=== PATIENT | female | born 1960 | race Caucasian/White ===

== ENCOUNTER 2017-08-25 02:39 | Emergency (ER) | payer SELFPAY ==
[~2017-08-25] VITALS: Ht 312.4 cm; Wt 88.5 kg
[~2017-08-25 02:39] MED LIST: DIOVAN80 MG PO; FUROSEMIDE40 MG PO
--- OUTSIDE RECORDS SUMMARY | 2017-08-25 02:42 | XMS REPORT ---
Author Author [facility] Address Unknown Phone Unavailable Care Team Providers Care Coordinator Of Health Services Name Role Phone MARY BETH TARANGO Unavailable Unavailable ANGELA AWLLSYN Unavailable Unavailable SWEET, LAIRD Unavailable Unavailable Problems This patient has no known problems. Allergies, Adverse Reactions, Alerts This patient has no known allergies or adverse reactions. Medications This patient has no known medications. Results Test Description Test Time Test Comments Text Results Atomic Results Result Comments B-TYPE NATRIURETIC FACTOR (BNP) 2017-08-23 15:55:00 B-TYPE NATRIURETIC PEPTIDE (BEAKER) (test dpzr=864) 506 pg/mL 0-100 [id number] 15:48:00* Test Item Value Reference Range Comments MAGNESIUM (BEAKER) (test oslj=190) 2.2 mg/dL 1.6-2.6 BASIC METABOLIC [id number] 15:48:00* Test Item Value Reference Range Comments SODIUM (BEAKER) (test qfba=390) 139 meq/L 136-145 POTASSIUM (BEAKER) (test nhvp=327) 4.8 meq/L 3.5-5.1 CHLORIDE (BEAKER) (test mmzs=737) 103 meq/L 98-107 CO2 (BEAKER) (test qdxw=045) 27 meq/L 22-29 BLOOD UREA NITROGEN (BEAKER) (test bspw=024) 33 mg/dL 7-21 CREATININE (BEAKER) (test fvrn=281) 1.52 mg/dL 0.57-1.25 GLUCOSE RANDOM (BEAKER) (test aewj=533) 127 mg/dL 70-105 CALCIUM (BEAKER) (test jxyh=721) 9.9 mg/dL 8.4-10.2 EGFR (BEAKER) (test tkgg=5597) 35 mL/min/1.73 sq m ESTIMATED GFR IS NOT ACCURATE CREATININE CLEARANCE IN PREDICTING GLOMERULAR FILTRATION RATE. ESTIMATED GFR IS NOT APPLICABLE FOR DIALYSIS PATIENTS. PROTHROMBIN TIME/[id number] 05:25:00* Test Item Value Reference Range Comments PROTIME (BEAKER) (test jhzd=743) 18.2 seconds 11.7-14.7 INR (BEAKER) (test gtxo=386) 1.5 <=5.9 RECOMMENDED COUMADIN/WARFARIN INR THERAPY RANGESSTANDARD DOSE: 2.0 - 3.0 Includes: PROPHYLAXIS for venous thrombosis, systemic embolization; TREATMENT for venous thrombosis and/or pulmonary embolus.HIGH RISK: Target INR is 2.5-3.5 for patients with mechanical heart valves.While on warfarin.BLOOD [id number] 00:00:00* Test Item Value Reference Range Comments CULTURE (BEAKER) (test wtbc=7847) No growth in 5 days BLOOD [id number] 00:00:00* Test Item Value Reference Range Comments CULTURE (BEAKER) (test kobs=3070) No growth in 5 days HEPARIN ASSAY - LOW MOLECULAR [id number] 15:03:00* Test Item Value Reference Range Comments LOVENOX-ANTI 10A (BEAKER) (test rmwk=9350) 0.89 u/ml 0.60-2.00 Anti-Factor 10-A Level (Heparin Assay for Low Molecular Weight Heparin) Monitoring Guidelines: Blood samples should be obtained 4 hours post subcutaneous injection (time of Peak level) Therapeutic Peak Levels: 0.6-1.0 units/mL twice daily enoxaparin 1.0-2.0 units/mL once daily enoxaparinRef: CHEST 2012;141:[id number]-[id number] draw anti-Xa level \R\4 hours after lovenox is administered.PROTHROMBIN TIME/[id number] 06:08:00* Test Item Value Reference Range Comments PROTIME (BEAKER) (test leoj=651) 17.1 seconds 11.7-14.7 INR (BEAKER) (test bbyy=665) 1.4 <=5.9 RECOMMENDED COUMADIN/WARFARIN INR THERAPY RANGESSTANDARD DOSE: 2.0 - 3.0 Includes: PROPHYLAXIS for venous thrombosis, systemic embolization; TREATMENT for venous thrombosis and/or pulmonary embolus.HIGH RISK: Target INR is 2.5-3.5 for patients with mechanical heart valves.While on warfarin.PET, CARDIAC PERFUSION MULTIPLE STUDIES, REST AND [id number] 15:51:00Reason for exam:-> heart failureFINAL REPORT PROCEDURE: Rest/Stress MYOCARDIAL PERFUSION PET with regadenoson\XA9\ CPT CODE: 56930 INDICATION: Congestive heart failure HISTORY: Cardiac risk factors : Hypertension, obesity, hyperlipidemia. Other cardiovascular history: Congestive heart failure. Recent cardiac symptoms: Chest pain and shortness of breath. Current cardiovascular-related medications: Aspirin, amiodarone, atorvastatin, Lovenox, furosemide. PROTOCOL: Limited low-dose CT imaging was performed for attenuation correction. 40.1 mCi of Rb-82 chloride was injected iv at rest, and gated PET (positron emission tomography) images were obtained. Subsequently, 40.0 mCi of Rb-82 chloride was injected iv at expected peak pharmacologic effect, and gated PET images were obtained. PRELIMINARY STRESS TEST DATA FROM NONINVASIVE CARDIOLOGY: Pharmacologic stress was by 10- second iv infusion of 0.4 mg of regadenoson. Radiotracer was injected 30 seconds after start of stress. Heart rate was 85 beats/min at rest and 116 beats /min (71% of MPHR) at tracer injection. BP was 137/68 mmHg at rest and 141/94 mmHg at tracer injection. Stress was stopped for predetermined endpoint. The patient experienced palpitations; treatment was not required. Preliminary ECG evaluation revealed atrial fibrillation with nonspecific ST changes at rest and no ischemic changes with stress. (Final ECG interpretation and other stress and monitoring data are reported separately by Cardiology.) IMAGING FINDINGS: Study quality is good. Images obtained after stress injection show normal radiotracer uptake. Resting images show normal radiotracer uptake. LV volume appears normal. RV volume appears normal. Gated images obtained immediately after stress show mildly hypokinetic LV wall motion. Gated images obtained at rest show normal LV wall motion. LVEF at rest is 60%. LVEF at stress is 47%. IMPRESSION: 1. Abnormal study. 2. Appropriate pharmacologic stress. 3. Normal myocardial perfusion. 4. Normal resting LV function. Worsened LV function is noted with pharmacologic stress. 5. Extracardiac tracer distribution is normal. 6. No previous [facility] study for comparison. NONINVASIVE RISK STRATIFICATION: The above findings are considered intermediate risk (1% to 3% annual or WI) - ([facility]. 2017;69(17):2212-46.) Signed: Gracia Chiang MDReport Verified Date/Time: 08/14/2017 15:51:17 Reading Location: [address] [facility] Reading Room C METABOLIC [id number] 04:08: 00* Test Item Value Reference Range Comments SODIUM (BEAKER) (test reyv=057) 139 meq/L 136-145 POTASSIUM (BEAKER) (test pgrt=611) 4.3 meq/L 3.5-5.1 Specimen slightly hemolyzed CHLORIDE (BEAKER) (test viri=087) 95 meq/L 98-107 CO2 (BEAKER) (test rpff=716) 32 meq/L 22-29 BLOOD UREA NITROGEN (BEAKER) (test szux=694) 26 mg/dL 7-21 CREATININE (BEAKER) (test vydq=173) 1.43 mg/dL 0.57-1.25 Specimen slightly hemolyzed GLUCOSE RANDOM (BEAKER) (test jmjl=379) 114 mg/dL 70-105 CALCIUM (BEAKER) (test othv=642) 9.8 mg/dL 8.4-10.2 EGFR (BEAKER) (test utmt=0157) 38 mL/min/1.73 sq m ESTIMATED GFR IS NOT ACCURATE CREATININE CLEARANCE IN PREDICTING GLOMERULAR FILTRATION RATE. ESTIMATED GFR IS NOT APPLICABLE FOR DIALYSIS PATIENTS. CBC W/PLT COUNT & AUTO [id number] 03:56:00* Test Item Value Reference Range Comments WHITE BLOOD CELL COUNT (BEAKER) (test ggdg=372) 15.1 K/ L 3.5-10.5 RED BLOOD CELL COUNT (BEAKER) (test zqqg=409) 4.24 M/ L 3.93-5.22 HEMOGLOBIN (BEAKER) (test aefr=323) 11.1 GM/DL 11.2-15.7 HEMATOCRIT (BEAKER) (test sryc=076) 39.3 % 34.1-44.9 MEAN CORPUSCULAR VOLUME (BEAKER) (test uybs=985) 92.7 fL 79.4-94.8 MEAN CORPUSCULAR HEMOGLOBIN (BEAKER) (test mpby=059) 26.2 pg 25.6-32.2 MEAN CORPUSCULAR HEMOGLOBIN CONC (BEAKER) (test gqjs=714) 28.2 GM/DL 32.2- 35.5 RED CELL DISTRIBUTION WIDTH (BEAKER) (test vlis=556) 17.2 % 11.7-14.4 PLATELET COUNT (BEAKER) (test zusm=657) 419 K/CU MM 150-450 MEAN PLATELET VOLUME (BEAKER) (test foxm=419) 10.2 fL 9.4-12.3 NUCLEATED RED BLOOD CELLS (BEAKER) (test vhkb=800) 0 /100 WBC 0-0 NEUTROPHILS RELATIVE PERCENT (BEAKER) (test zgvv=441) 75 % LYMPHOCYTES RELATIVE PERCENT (BEAKER) (test jehg=612) 10 % MONOCYTES RELATIVE PERCENT (BEAKER) (test mjpz=691) 11 % EOSINOPHILS RELATIVE PERCENT (BEAKER) (test brli=562) 3 % BASOPHILS RELATIVE PERCENT (BEAKER) (test gaki=947) 1 % NEUTROPHILS ABSOLUTE COUNT (BEAKER) (test vdfu=583) 11.32 K/ L 1.56-6.13 LYMPHOCYTES ABSOLUTE COUNT (BEAKER) (test abuq=775) 1.55 K/ L 1.18-3.74 MONOCYTES ABSOLUTE COUNT (BEAKER) (test cgug=891) 1.59 K/ L 0.24-0.36 EOSINOPHILS ABSOLUTE COUNT (BEAKER) (test kogj=512) 0.50 K/ L 0.04-0.36 BASOPHILS ABSOLUTE COUNT (BEAKER) (test croo=650) 0.08 K/ L 0.01-0.08 IMMATURE GRANULOCYTES-RELATIVE PERCENT (BEAKER) (test xuwa=0027) 1 % 0-1 PROTHROMBIN TIME/[id number] 03:53:00* Test Item Value Reference Range Comments PROTIME (BEAKER) (test zocs=884) 15.2 seconds 11.7-14.7 INR (BEAKER) (test dbfm=583) 1.2 <=5.9 RECOMMENDED COUMADIN/WARFARIN INR THERAPY RANGESSTANDARD DOSE: 2.0 - 3.0 Includes: PROPHYLAXIS for venous thrombosis, systemic embolization; TREATMENT for venous thrombosis and/or pulmonary embolus.HIGH RISK: Target INR is 2.5-3.5 for patients with mechanical heart valves.While on warfarin.BASIC METABOLIC [id number] 12:19:00* Test Item Value Reference Range Comments SODIUM (BEAKER) (test jqss=745) 141 meq/L 136-145 POTASSIUM (BEAKER) (test zwct=108) 3.9 meq/L 3.5-5.1 CHLORIDE (BEAKER) (test pwig=978) 97 meq/L 98-107 CO2 (BEAKER) (test mrnr=983) 30 meq/L 22-29 BLOOD UREA NITROGEN (BEAKER) (test siuo=382) 21 mg/dL 7-21 CREATININE (BEAKER) (test gmnu=813) 1.23 mg/dL 0.57-1.25 GLUCOSE RANDOM (BEAKER) (test nvzi=590) 90 mg/dL 70-105 CALCIUM (BEAKER) (test uaxe=210) 9.1 mg/dL 8.4-10.2 EGFR (BEAKER) (test ubcc=9347) 45 mL/min/1.73 sq m ESTIMATED GFR IS NOT ACCURATE CREATININE CLEARANCE IN PREDICTING GLOMERULAR FILTRATION RATE. ESTIMATED GFR IS NOT APPLICABLE FOR DIALYSIS PATIENTS. CBC W/PLT COUNT & AUTO [id number] 08:02:00* Test Item Value Reference Range Comments WHITE BLOOD CELL COUNT (BEAKER) (test wtxy=473) 13.6 K/ L 3.5-10.5 RED BLOOD CELL COUNT (BEAKER) (test yhnm=562) 3.61 M/ L 3.93-5.22 HEMOGLOBIN (BEAKER) (test lohp=197) 9.5 GM/DL 11.2-15.7 HEMATOCRIT (BEAKER) (test ccbo=751) 33.1 % 34.1-44.9 MEAN CORPUSCULAR VOLUME (BEAKER) (test fdzi=771) 91.7 fL 79.4-94.8 MEAN CORPUSCULAR HEMOGLOBIN (BEAKER) (test qulj=349) 26.3 pg 25.6-32.2 MEAN CORPUSCULAR HEMOGLOBIN CONC (BEAKER) (test ufen=164) 28.7 GM/DL 32.2- 35.5 RED CELL DISTRIBUTION WIDTH (BEAKER) (test xern=589) 17.0 % 11.7-14.4 PLATELET COUNT (BEAKER) (test qshd=895) 438 K/CU MM 150-450 MEAN PLATELET VOLUME (BEAKER) (test rhwq=778) 10.9 fL 9.4-12.3 NUCLEATED RED BLOOD CELLS (BEAKER) (test okmm=563) 0 /100 WBC 0-0 NEUTROPHILS RELATIVE PERCENT (BEAKER) (test htst=759) 72 % LYMPHOCYTES RELATIVE PERCENT (BEAKER) (test iijp=223) 14 % MONOCYTES RELATIVE PERCENT (BEAKER) (test mrmd=810) 10 % EOSINOPHILS RELATIVE PERCENT (BEAKER) (test pncu=590) 4 % BASOPHILS RELATIVE PERCENT (BEAKER) (test rvnn=646) 1 % NEUTROPHILS ABSOLUTE COUNT (BEAKER) (test ryvl=994) 9.78 K/ L 1.56-6.13 LYMPHOCYTES ABSOLUTE COUNT (BEAKER) (test aofe=200) 1.85 K/ L 1.18-3.74 MONOCYTES ABSOLUTE COUNT (BEAKER) (test rhnh=223) 1.38 K/ L 0.24-0.36 EOSINOPHILS ABSOLUTE COUNT (BEAKER) (test fusn=744) 0.49 K/ L 0.04-0.36 BASOPHILS ABSOLUTE COUNT (BEAKER) (test ydvg=324) 0.07 K/ L 0.01-0.08 IMMATURE GRANULOCYTES-RELATIVE PERCENT (BEAKER) (test ubma=8380) 0 % 0-1 PROTHROMBIN TIME/[id number] 06:01:00* Test Item Value Reference Range Comments PROTIME (BEAKER) (test vrnw=744) 14.7 seconds 11.7-14.7 INR (BEAKER) (test ysud=466) 1.2 <=5.9 RECOMMENDED COUMADIN/WARFARIN INR THERAPY RANGESSTANDARD DOSE: 2.0 - 3.0 Includes: PROPHYLAXIS for venous thrombosis, systemic embolization; TREATMENT for venous thrombosis and/or pulmonary embolus.HIGH RISK: Target INR is 2.5-3.5 for patients with mechanical heart valves.While on warfarin.[id number] 07:36:00* Test Item Value Reference Range Comments PHOSPHORUS (BEAKER) (test ylyq=344) 3.6 mg/dL 2.3-4.7 [id number] 07:36:00* Test Item Value Reference Range Comments MAGNESIUM (BEAKER) (test zcoi=206) 2.0 mg/dL 1.6-2.6 BASIC METABOLIC [id number] 07:36:00* Test Item Value Reference Range Comments SODIUM (BEAKER) (test scgf=818) 142 meq/L 136-145 POTASSIUM (BEAKER) (test ubng=050) 3.6 meq/L 3.5-5.1 CHLORIDE (BEAKER) (test qidv=686) 99 meq/L 98-107 CO2 (BEAKER) (test bajt=885) 33 meq/L 22-29 BLOOD UREA NITROGEN (BEAKER) (test vqod=240) 19 mg/dL 7-21 CREATININE (BEAKER) (test yhcx=819) 1.34 mg/dL 0.57-1.25 GLUCOSE RANDOM (BEAKER) (test xsxx=165) 108 mg/dL 70-105 CALCIUM (BEAKER) (test ghpt=836) 8.8 mg/dL 8.4-10.2 EGFR (BEAKER) (test yysj=2820) 41 mL/min/1.73 sq m ESTIMATED GFR IS NOT ACCURATE CREATININE CLEARANCE IN PREDICTING GLOMERULAR FILTRATION RATE. ESTIMATED GFR IS NOT APPLICABLE FOR DIALYSIS PATIENTS. HEPATIC FUNCTION [id number] 07:36:00* Test Item Value Reference Range Comments TOTAL PROTEIN (BEAKER) (test bbtk=668) 6.8 gm/dL 6.0-8.3 ALBUMIN (BEAKER) (test jueg=4221) 3.4 g/dL 3.5-5.0 BILIRUBIN TOTAL (BEAKER) (test ghud=110) 0.6 mg/dL 0.2-1.2 BILIRUBIN DIRECT (BEAKER) (test dgat=728) 0.2 mg/dL 0.1-0.5 ALKALINE PHOSPHATASE (BEAKER) (test intk=240) 69 U/L 40-150 AST (SGOT) (BEAKER) (test tknz=038) 12 U/L 5-34 ALT (SGPT) (BEAKER) (test gbct=582) 16 U/L 6-55 CBC W/PLT COUNT & AUTO [id number] 06:34:00* Test Item Value Reference Range Comments WHITE BLOOD CELL COUNT (BEAKER) (test nasx=019) 12.7 K/ L 3.5-10.5 RED BLOOD CELL COUNT (BEAKER) (test uvpj=466) 3.53 M/ L 3.93-5.22 HEMOGLOBIN (BEAKER) (test raex=750) 9.5 GM/DL 11.2-15.7 HEMATOCRIT (BEAKER) (test csyw=773) 32.4 % 34.1-44.9 MEAN CORPUSCULAR VOLUME (BEAKER) (test scrk=976) 91.8 fL 79.4-94.8 MEAN CORPUSCULAR HEMOGLOBIN (BEAKER) (test zhis=511) 26.9 pg 25.6-32.2 MEAN CORPUSCULAR HEMOGLOBIN CONC (BEAKER) (test ajal=134) 29.3 GM/DL 32.2- 35.5 RED CELL DISTRIBUTION WIDTH (BEAKER) (test tbra=729) 17.2 % 11.7-14.4 PLATELET COUNT (BEAKER) (test nawk=531) 412 K/CU MM 150-450 MEAN PLATELET VOLUME (BEAKER) (test kkpo=136) 11.5 fL 9.4-12.3 NUCLEATED RED BLOOD CELLS (BEAKER) (test efnw=401) 0 /100 WBC 0-0 NEUTROPHILS RELATIVE PERCENT (BEAKER) (test lmgq=994) 72 % LYMPHOCYTES RELATIVE PERCENT (BEAKER) (test cjhf=426) 14 % MONOCYTES RELATIVE PERCENT (BEAKER) (test tznb=596) 8 % EOSINOPHILS RELATIVE PERCENT (BEAKER) (test qilw=423) 5 % BASOPHILS RELATIVE PERCENT (BEAKER) (test yjsy=525) 0 % NEUTROPHILS ABSOLUTE COUNT (BEAKER) (test knag=852) 9.17 K/ L 1.56-6.13 LYMPHOCYTES ABSOLUTE COUNT (BEAKER) (test kdzd=043) 1.79 K/ L 1.18-3.74 MONOCYTES ABSOLUTE COUNT (BEAKER) (test fzgb=661) 1.03 K/ L 0.24-0.36 EOSINOPHILS ABSOLUTE COUNT (BEAKER) (test pfka=700) 0.58 K/ L 0.04-0.36 BASOPHILS ABSOLUTE COUNT (BEAKER) (test yaif=753) 0.05 K/ L 0.01-0.08 IMMATURE GRANULOCYTES-RELATIVE PERCENT (BEAKER) (test vylg=7689) 1 % 0-1 PROTHROMBIN TIME/[id number] 05:47:00* Test Item Value Reference Range Comments PROTIME (BEAKER) (test hntx=811) 13.7 seconds 11.7-14.7 INR (BEAKER) (test qbqa=835) 1.0 <=5.9 RECOMMENDED COUMADIN/WARFARIN INR THERAPY RANGESSTANDARD DOSE: 2.0 - 3.0 Includes: PROPHYLAXIS for venous thrombosis, systemic embolization; TREATMENT for venous thrombosis and/or pulmonary embolus.HIGH RISK: Target INR is 2.5-3.5 for patients with mechanical heart valves.While on warfarin.POCT-GLUCOSE [id number] 23:25:00* Test Item Value Reference Range Comments POC-GLUCOSE METER (BEAKER) (test czra=1096) 173 mg/dL 70-110 TESTED AT [facility] [address] [address] HEMOGLOBIN [id number] 12:11:00* Test Item Value Reference Range Comments HEMOGLOBIN A1C (BEAKER) (test bmek=547) 6.2 % 4.3-6.1 B-TYPE NATRIURETIC FACTOR (BNP)2017-08-11 11:55:00* Test Item Value Reference Range Comments B-TYPE NATRIURETIC PEPTIDE (BEAKER) (test ovic=954) 180 pg/mL 0-100 POCT-GLUCOSE [id number] 11:17:00* Test Item Value Reference Range Comments POC-GLUCOSE METER (BEAKER) (test tqex=8830) 158 mg/dL 70-110 TESTED AT [facility] [address] [facility] [address] PROTHROMBIN TIME/[id number] 11:09:00* Test Item Value Reference Range Comments PROTIME (BEAKER) (test xzvs=888) 13.8 seconds 11.7-14.7 INR (BEAKER) (test itrl=614) 1.1 <=5.9 RECOMMENDED COUMADIN/WARFARIN INR THERAPY RANGESSTANDARD DOSE: 2.0 - 3.0 Includes: PROPHYLAXIS for venous thrombosis, systemic embolization; TREATMENT for venous thrombosis and/or pulmonary embolus.HIGH RISK: Target INR is 2.5-3.5 for patients with mechanical heart valves.While on warfarin.BLOOD GAS, [id number] 10:57:00* Test Item Value Reference Range Comments PH ARTERIAL (BEAKER) (test pqse=520) 7.37 7.35-7.45 PCO2 ARTERIAL (BEAKER) (test fiub=916) 60 mmHg 35-45 PO2 ARTERIAL (BEAKER) (test brlc=337) 112 mmHg 80-90 O2 SATURATION ARTERIAL (BEAKER) (test rwiw=659) 97.8 % 96.0-97.0 HCO3 ARTERIAL (BEAKER) (test acmi=315) 34 mmol/L 21-29 BASE EXCESS ARTERIAL (BEAKER) (test qiot=418) 7.6 mmol/L -2.0-3.0 PATIENT TEMPERATURE (BEAKER) (test rawd=3875) 37.0 C FIO2 (BEAKER) (test fujw=9072) 28.0 % POCT-GLUCOSE [id number] 09:42:00* Test Item Value Reference Range Comments POC-GLUCOSE METER (BEAKER) (test oyvz=8932) 190 mg/dL 70-110 TESTED AT [facility] [address] [address] CREATINE KINASE (CK), TOTAL AND [id number] 01:47:00* Test Item Value Reference Range Comments CREATINE KINASE TOTAL (BEAKER) (test twdk=430) 20 U/L 29-200 CREATINE KINASE-MB (BEAKER) (test zzbv=340) 0.7 ng/mL 0.0-6.6 CREATINE KINASE-MB INDEX (BEAKER) (test tfai=373) 3.5 % CK-MB Reference Range:<6.7 Normal6.7-10.0 Borderline>10.0 AbnormalTROPONIN [id number] 01:47:00* Test Item Value Reference Range Comments TROPONIN I (BEAKER) (test dxji=176) 0.02 ng/mL 0.00-0.03 Troponin I (TnI) levels must be interpreted in the context of the presenting symptoms and the clinical findings. Elevated TnI levels indicate myocardial damage, but are not specific for ischemic heart disease. Elevated TnI levels are seen in patients with other cardiac conditions (including myocarditis and congestive heart failure), and slight TnI elevations occur in patients with other conditions, including sepsis, renal failure, acidosis, acute neurological disease, and persistent tachyarrhythmia.[id number] 01:39:00* Test Item Value Reference Range Comments PHOSPHORUS (BEAKER) (test lpzd=012) 4.6 mg/dL 2.3-4.7 [id number] 01:39:00* Test Item Value Reference Range Comments MAGNESIUM (BEAKER) (test vvap=008) 2.3 mg/dL 1.6-2.6 BASIC METABOLIC [id number] 01:39:00* Test Item Value Reference Range Comments SODIUM (BEAKER) (test nkai=002) 140 meq/L 136-145 POTASSIUM (BEAKER) (test nove=614) 3.8 meq/L 3.5-5.1 CHLORIDE (BEAKER) (test ecnp=865) 102 meq/L 98-107 CO2 (BEAKER) (test kvhh=482) 29 meq/L 22-29 BLOOD UREA NITROGEN (BEAKER) (test jxbq=446) 21 mg/dL 7-21 CREATININE (BEAKER) (test fbhf=705) 1.41 mg/dL 0.57-1.25 GLUCOSE RANDOM (BEAKER) (test iynx=774) 111 mg/dL 70-105 CALCIUM (BEAKER) (test nfod=654) 8.7 mg/dL 8.4-10.2 EGFR (BEAKER) (test jise=2754) 38 mL/min/1.73 sq m ESTIMATED GFR IS NOT ACCURATE CREATININE CLEARANCE IN PREDICTING GLOMERULAR FILTRATION RATE. ESTIMATED GFR IS NOT APPLICABLE FOR DIALYSIS PATIENTS. HEPATIC FUNCTION [id number] 01:39:00* Test Item Value Reference Range Comments TOTAL PROTEIN (BEAKER) (test zact=338) 6.8 gm/dL 6.0-8.3 ALBUMIN (BEAKER) (test vcoa=7745) 3.4 g/dL 3.5-5.0 BILIRUBIN TOTAL (BEAKER) (test cmpw=672) 0.5 mg/dL 0.2-1.2 BILIRUBIN DIRECT (BEAKER) (test haex=806) 0.3 mg/dL 0.1-0.5 ALKALINE PHOSPHATASE (BEAKER) (test wcsf=523) 76 U/L 40-150 AST (SGOT) (BEAKER) (test tdcr=818) 14 U/L 5-34 ALT (SGPT) (BEAKER) (test evub=909) 18 U/L 6-55 CBC W/PLT COUNT & AUTO [id number] 01:28:00* Test Item Value Reference Range Comments WHITE BLOOD CELL COUNT (BEAKER) (test jiij=551) 11.0 K/ L 3.5-10.5 RED BLOOD CELL COUNT (BEAKER) (test zwtt=639) 3.42 M/ L 3.93-5.22 HEMOGLOBIN (BEAKER) (test alij=545) 9.0 GM/DL 11.2-15.7 HEMATOCRIT (BEAKER) (test tyzt=377) 31.0 % 34.1-44.9 MEAN CORPUSCULAR VOLUME (BEAKER) (test owee=930) 90.6 fL 79.4-94.8 MEAN CORPUSCULAR HEMOGLOBIN (BEAKER) (test pyoj=147) 26.3 pg 25.6-32.2 MEAN CORPUSCULAR HEMOGLOBIN CONC (BEAKER) (test iufg=962) 29.0 GM/DL 32.2- 35.5 RED CELL DISTRIBUTION WIDTH (BEAKER) (test smnm=900) 17.2 % 11.7-14.4 PLATELET COUNT (BEAKER) (test saiy=835) 388 K/CU MM 150-450 MEAN PLATELET VOLUME (BEAKER) (test lgvm=773) 10.3 fL 9.4-12.3 NUCLEATED RED BLOOD CELLS (BEAKER) (test lsjd=457) 1 /100 WBC 0-0 NEUTROPHILS RELATIVE PERCENT (BEAKER) (test ezrc=544) 70 % LYMPHOCYTES RELATIVE PERCENT (BEAKER) (test voil=428) 17 % MONOCYTES RELATIVE PERCENT (BEAKER) (test vxxa=851) 8 % EOSINOPHILS RELATIVE PERCENT (BEAKER) (test waom=177) 5 % BASOPHILS RELATIVE PERCENT (BEAKER) (test upzh=625) 1 % NEUTROPHILS ABSOLUTE COUNT (BEAKER) (test bwqt=621) 7.67 K/ L 1.56-6.13 LYMPHOCYTES ABSOLUTE COUNT (BEAKER) (test hwrv=892) 1.83 K/ L 1.18-3.74 MONOCYTES ABSOLUTE COUNT (BEAKER) (test xqwy=461) 0.88 K/ L 0.24-0.36 EOSINOPHILS ABSOLUTE COUNT (BEAKER) (test wnbt=341) 0.49 K/ L 0.04-0.36 BASOPHILS ABSOLUTE COUNT (BEAKER) (test nxxv=148) 0.06 K/ L 0.01-0.08 IMMATURE GRANULOCYTES-RELATIVE PERCENT (BEAKER) (test hfjj=4864) 1 % 0-1 SEDIMENTATION [id number] 20:52:00* Test Item Value Reference Range Comments SEDIMENTATION RATE, ERYTHROCYTE (BEAKER) (test adeb=623) 57 mm/HR 0-30 VITAMIN [id number] 20:01:00* Test Item Value Reference Range Comments VITAMIN B12 (BEAKER) (test mqgb=472) 340 pg/mL 213-816 [id number] 20:01:00* Test Item Value Reference Range Comments FERRITIN (BEAKER) (test nfsi=175) 40 ng/mL 5-275 FOLATE, [id number] 20:01:00* Test Item Value Reference Range Comments FOLATE (BEAKER) (test difj=347) 7.7 ng/mL >=7.0 TSH/FREE T4 IF [id number] 20:01:00* Test Item Value Reference Range Comments THYROID STIMULATING HORMONE (BEAKER) (test xaii=878) 1.55 uIU/mL 0.35-4.94 CREATINE KINASE (CK), TOTAL AND [id number] 19:34:00* Test Item Value Reference Range Comments CREATINE KINASE TOTAL (BEAKER) (test lgio=724) 29 U/L 29-200 CREATINE KINASE-MB (BEAKER) (test vyvy=639) 0.9 ng/mL 0.0-6.6 CREATINE KINASE-MB INDEX (BEAKER) (test kezt=407) 3.1 % CK-MB Reference Range:<6.7 Normal6.7-10.0 Borderline>10.0 AbnormalTROPONIN [id number] 19:34:00* Test Item Value Reference Range Comments TROPONIN I (BEAKER) (test oktc=738) 0.01 ng/mL 0.00-0.03 Troponin I (TnI) levels must be interpreted in the context of the presenting symptoms and the clinical findings. Elevated TnI levels indicate myocardial damage, but are not specific for ischemic heart disease. Elevated TnI levels are seen in patients with other cardiac conditions (including myocarditis and congestive heart failure), and slight TnI elevations occur in patients with other conditions, including sepsis, renal failure, acidosis, acute neurological disease, and persistent tachyarrhythmia.RETICULOCYTE [id number] 19:31:00* Test Item Value Reference Range Comments RETICULOCYTE COUNT PCT (BEAKER) (test fnhd=555) 3.5 % 0.5-1.7 CBC W/PLT COUNT & AUTO [id number] 19:31:00* Test Item Value Reference Range Comments WHITE BLOOD CELL COUNT (BEAKER) (test jtvk=793) 14.0 K/ L 3.5-10.5 RED BLOOD CELL COUNT (BEAKER) (test rwci=186) 3.65 M/ L 3.93-5.22 HEMOGLOBIN (BEAKER) (test sqfe=565) 9.6 GM/DL 11.2-15.7 HEMATOCRIT (BEAKER) (test vwqu=487) 33.2 % 34.1-44.9 MEAN CORPUSCULAR VOLUME (BEAKER) (test zzxl=915) 91.0 fL 79.4-94.8 MEAN CORPUSCULAR HEMOGLOBIN (BEAKER) (test dgvh=300) 26.3 pg 25.6-32.2 MEAN CORPUSCULAR HEMOGLOBIN CONC (BEAKER) (test wpru=884) 28.9 GM/DL 32.2- 35.5 RED CELL DISTRIBUTION WIDTH (BEAKER) (test khsj=354) 17.2 % 11.7-14.4 PLATELET COUNT (BEAKER) (test gjef=129) 441 K/CU MM 150-450 MEAN PLATELET VOLUME (BEAKER) (test sevc=347) 10.5 fL 9.4-12.3 NUCLEATED RED BLOOD CELLS (BEAKER) (test adtr=376) 1 /100 WBC 0-0 NEUTROPHILS RELATIVE PERCENT (BEAKER) (test cxmg=749) 77 % LYMPHOCYTES RELATIVE PERCENT (BEAKER) (test aztf=941) 14 % MONOCYTES RELATIVE PERCENT (BEAKER) (test qjhj=615) 5 % EOSINOPHILS RELATIVE PERCENT (BEAKER) (test bncb=865) 3 % BASOPHILS RELATIVE PERCENT (BEAKER) (test irfi=066) 1 % NEUTROPHILS ABSOLUTE COUNT (BEAKER) (test qwjn=866) 10.78 K/ L 1.56-6.13 LYMPHOCYTES ABSOLUTE COUNT (BEAKER) (test eerq=746) 1.91 K/ L 1.18-3.74 MONOCYTES ABSOLUTE COUNT (BEAKER) (test upst=121) 0.74 K/ L 0.24-0.36 EOSINOPHILS ABSOLUTE COUNT (BEAKER) (test jtoz=229) 0.41 K/ L 0.04-0.36 BASOPHILS ABSOLUTE COUNT (BEAKER) (test iwva=659) 0.08 K/ L 0.01-0.08 IMMATURE GRANULOCYTES-RELATIVE PERCENT (BEAKER) (test plpe=8623) 1 % 0-1 [id number] 19:27:00* Test Item Value Reference Range Comments PHOSPHORUS (BEAKER) (test euyq=848) 3.1 mg/dL 2.3-4.7 [id number] 19:27:00* Test Item Value Reference Range Comments MAGNESIUM (BEAKER) (test ccyx=772) 2.2 mg/dL 1.6-2.6 BASIC METABOLIC [id number] 19:27:00* Test Item Value Reference Range Comments SODIUM (BEAKER) (test yktq=805) 139 meq/L 136-145 POTASSIUM (BEAKER) (test wgws=820) 4.3 meq/L 3.5-5.1 CHLORIDE (BEAKER) (test mjpk=220) 100 meq/L 98-107 CO2 (BEAKER) (test gdug=976) 29 meq/L 22-29 BLOOD UREA NITROGEN (BEAKER) (test piww=488) 20 mg/dL 7-21 CREATININE (BEAKER) (test jevc=403) 1.44 mg/dL 0.57-1.25 GLUCOSE RANDOM (BEAKER) (test sjkl=882) 155 mg/dL 70-105 CALCIUM (BEAKER) (test vimj=117) 9.2 mg/dL 8.4-10.2 EGFR (BEAKER) (test zpve=7156) 38 mL/min/1.73 sq m ESTIMATED GFR IS NOT ACCURATE CREATININE CLEARANCE IN PREDICTING GLOMERULAR FILTRATION RATE. ESTIMATED GFR IS NOT APPLICABLE FOR DIALYSIS PATIENTS. LIPID [id number] 19:27:00* Test Item Value Reference Range Comments TRIGLYCERIDES (BEAKER) (test snlc=709) 158 mg/dL CHOLESTEROL (BEAKER) (test wxix=953) 213 mg/dL HDL CHOLESTEROL (BEAKER) (test vzge=266) 30 mg/dL LDL CHOLESTEROL CALCULATED (BEAKER) (test ahif=747) 151 mg/dL Triglyceride Reference Range: Low Risk <150 Borderline 150-199 High Risk 200-499 Very High Risk >=500Cholesterol Reference Range: Low Risk <200 Borderline 200-239 High Risk >240HDL Cholesterol Reference Range: Low Risk >=60 High Risk <40LDL Cholesterol Reference Range: Optimal <100 Near Optimal 100-129 Borderline 130-159 High 160-189 Very High >=190 HEPATIC FUNCTION [id number] 19:27:00* Test Item Value Reference Range Comments TOTAL PROTEIN (BEAKER) (test ovbi=127) 7.6 gm/dL 6.0-8.3 ALBUMIN (BEAKER) (test mcvi=0843) 3.7 g/dL 3.5-5.0 BILIRUBIN TOTAL (BEAKER) (test insc=933) 0.7 mg/dL 0.2-1.2 BILIRUBIN DIRECT (BEAKER) (test pyeq=770) 0.3 mg/dL 0.1-0.5 ALKALINE PHOSPHATASE (BEAKER) (test eoir=674) 84 U/L 40-150 AST (SGOT) (BEAKER) (test jzmv=088) 16 U/L 5-34 ALT (SGPT) (BEAKER) (test qrfk=186) 20 U/L 6-55 LACTATE DEHYDROGENASE (LDH)2017-08-10 19:27:00* Test Item Value Reference Range Comments LACTATE DEHYDROGENASE (BEAKER) (test lgla=582) 253 U/L 125-220 C-REACTIVE [id number] 19:27:00* Test Item Value Reference Range Comments C-REACTIVE PROTEIN (BEAKER) (test ncrz=583) 2.11 mg/dL 0.00-0.50 IRON, TIBC, % SAT. (WITHOUT FERRITIN)2017-08-10 19:27:00* Test Item Value Reference Range Comments IRON (BEAKER) (test wgdc=556) 22 ug/dL 40-160 TOTAL IRON BINDING CAPACITY (BEAKER) (test mqch=240) 501 ug/dL 250-450 IRON % SATURATION (2) (BEAKER) (test yjck=6948) 4 % 20-55 LACTIC ACID, VENOUS, WHOLE [id number] 19:20:00* Test Item Value Reference Range Comments LACTATE BLOOD VENOUS (2) (BEAKER) (test unkx=5079) 2.1 mmol/L 0.5-2.2 Effective 10/06/2015: Units/Reference Range ChangeNew: 0.5-2.2 mmol/L Previous: 5 -20 mg/dLURINALYSIS W/ REFLEX URINE [id number] 02:20:00* Test Item Value Reference Range Comments COLOR (BEAKER) (test bwdn=594) Yellow CLARITY (BEAKER) (test ibcj=402) Clear SPECIFIC GRAVITY UA (BEAKER) (test gttl=564) 1.015 1.001-1.035 PH UA (BEAKER) (test suyy=894) 6.5 5.0-8.0 PROTEIN UA (BEAKER) (test ycej=482) 50 mg/dL Negative GLUCOSE UA (BEAKER) (test yvtz=169) Negative Negative KETONES UA (BEAKER) (test hhku=467) Negative Negative BILIRUBIN UA (BEAKER) (test bqsm=118) Negative Negative BLOOD UA (BEAKER) (test vdik=305) Negative Negative NITRITE UA (BEAKER) (test txxz=023) Negative Negative LEUKOCYTE ESTERASE UA (BEAKER) (test tetn=824) Negative Negative UROBILINOGEN UA (BEAKER) (test pafq=893) 0.2 mg/dL 0.2-1.0 RBC UA (BEAKER) (test ttmv=027) 0 /HPF WBC UA (BEAKER) (test mfdu=885) 3 /HPF SQUAMOUS EPITHELIAL (BEAKER) (test ffyd=814) 10 /HPF SOURCE(BEAKER) (test cpev=4513) CREATINE KINASE (CK), TOTAL AND [id number] 01:11:00* Test Item Value Reference Range Comments CREATINE KINASE TOTAL (BEAKER) (test oghp=216) 30 U/L 29-200 CREATINE KINASE-MB (BEAKER) (test shbo=941) 1.0 ng/mL 0.0-6.6 CREATINE KINASE-MB INDEX (BEAKER) (test rthk=292) 3.3 % CK-MB Reference Range:<6.7 Normal6.7-10.0 Borderline>10.0 AbnormalTROPONIN [id number] 01:11:00* Test Item Value Reference Range Comments TROPONIN I (BEAKER) (test ilti=295) 0.02 ng/mL 0.00-0.03 Troponin I (TnI) levels must be interpreted in the context of the presenting symptoms and the clinical findings. Elevated TnI levels indicate myocardial damage, but are not specific for ischemic heart disease. Elevated TnI levels are seen in patients with other cardiac conditions (including myocarditis and congestive heart failure), and slight TnI elevations occur in patients with other conditions, including sepsis, renal failure, acidosis, acute neurological disease, and persistent tachyarrhythmia.B-TYPE NATRIURETIC FACTOR (BNP) 01:03:00* Test Item Value Reference Range Comments B-TYPE NATRIURETIC PEPTIDE (BEAKER) (test pzth=841) 293 pg/mL 0-100 BASIC METABOLIC [id number] 01:03:00* Test Item Value Reference Range Comments SODIUM (BEAKER) (test zsgu=417) 138 meq/L 136-145 POTASSIUM (BEAKER) (test ulsv=487) 3.8 meq/L 3.5-5.1 CHLORIDE (BEAKER) (test zweu=613) 106 meq/L 98-107 CO2 (BEAKER) (test sorz=977) 21 meq/L 22-29 BLOOD UREA NITROGEN (BEAKER) (test vmvq=492) 17 mg/dL 7-21 CREATININE (BEAKER) (test xjwo=732) 1.20 mg/dL 0.57-1.25 GLUCOSE RANDOM (BEAKER) (test vpdh=586) 116 mg/dL 70-105 CALCIUM (BEAKER) (test cgxw=817) 9.3 mg/dL 8.4-10.2 EGFR (BEAKER) (test ngwd=4827) 46 mL/min/1.73 sq m ESTIMATED GFR IS NOT ACCURATE CREATININE CLEARANCE IN PREDICTING GLOMERULAR FILTRATION RATE. ESTIMATED GFR IS NOT APPLICABLE FOR DIALYSIS PATIENTS. PT/[id number] 00:52:00* Test Item Value Reference Range Comments PROTIME (BEAKER) (test vfkd=173) 14.2 seconds 11.7-14.7 INR (BEAKER) (test gudo=313) 1.1 <=5.9 PARTIAL THROMBOPLASTIN TIME (BEAKER) (test zndx=023) 26.9 seconds 22.5-36.0 RECOMMENDED COUMADIN/WARFARIN INR THERAPY RANGESSTANDARD DOSE: 2.0 - 3.0 Includes: PROPHYLAXIS for venous thrombosis, systemic embolization; TREATMENT for venous thrombosis and/or pulmonary embolus.HIGH RISK: Target INR is 2.5-3.5 for patients with mechanical heart valves.CBC W/PLT COUNT & AUTO [id number] 00:47:00* Test Item Value Reference Range Comments WHITE BLOOD CELL COUNT (BEAKER) (test ecun=490) 15.9 K/ L 3.5-10.5 RED BLOOD CELL COUNT (BEAKER) (test jwhi=337) 3.51 M/ L 3.93-5.22 HEMOGLOBIN (BEAKER) (test jdyo=322) 9.4 GM/DL 11.2-15.7 HEMATOCRIT (BEAKER) (test zhlh=091) 32.5 % 34.1-44.9 MEAN CORPUSCULAR VOLUME (BEAKER) (test xcgy=921) 92.6 fL 79.4-94.8 MEAN CORPUSCULAR HEMOGLOBIN (BEAKER) (test ssuq=064) 26.8 pg 25.6-32.2 MEAN CORPUSCULAR HEMOGLOBIN CONC (BEAKER) (test pyqs=150) 28.9 GM/DL 32.2- 35.5 RED CELL DISTRIBUTION WIDTH (BEAKER) (test olsy=119) 17.3 % 11.7-14.4 PLATELET COUNT (BEAKER) (test mtgz=824) 441 K/CU MM 150-450 MEAN PLATELET VOLUME (BEAKER) (test zjtr=106) 10.2 fL 9.4-12.3 NUCLEATED RED BLOOD CELLS (BEAKER) (test zqya=929) 0 /100 WBC 0-0 NEUTROPHILS RELATIVE PERCENT (BEAKER) (test zqse=198) 77 % LYMPHOCYTES RELATIVE PERCENT (BEAKER) (test adbt=627) 13 % MONOCYTES RELATIVE PERCENT (BEAKER) (test ujyy=952) 7 % EOSINOPHILS RELATIVE PERCENT (BEAKER) (test ajid=247) 2 % BASOPHILS RELATIVE PERCENT (BEAKER) (test vkhm=810) 0 % NEUTROPHILS ABSOLUTE COUNT (BEAKER) (test ssze=186) 12.29 K/ L 1.56-6.13 LYMPHOCYTES ABSOLUTE COUNT (BEAKER) (test rmoo=771) 2.06 K/ L 1.18-3.74 MONOCYTES ABSOLUTE COUNT (BEAKER) (test hqxa=507) 1.07 K/ L 0.24-0.36 EOSINOPHILS ABSOLUTE COUNT (BEAKER) (test ywmw=976) 0.35 K/ L 0.04-0.36 BASOPHILS ABSOLUTE COUNT (BEAKER) (test ulwv=978) 0.07 K/ L 0.01-0.08 IMMATURE GRANULOCYTES-RELATIVE PERCENT (BEAKER) (test ijqx=1229) 1 % 0-1 RAD, CHEST, 1 VIEW, NON [id number] 00:38:00Reason for exam:->CHEST PAINIs the patient ?->NoShould this be performed at the bedside?->YesFINAL REPORT INDICATION: CHEST PAIN COMPARISON: None TECHNIQUE : Single frontal view of the chest. FINDINGS: Lungs and pleura: Clear lungs. No effusion.Heart and mediastinum: Enlarged cardiac silhouette. Unremarkable mediastinal contours.Osseous structures: No acute abnormality.Other: None. IMPRESSION: No acute intrathoracic abnormality. Signed: JR Uriostegui Robert MDReport Verified Date/Time: 08/10/2017 00:38:51 Reading Location: [address] Reading Room T 2 VIEWS [place] [address] Patient Name: KRISTY VILLANUEVA MR #: [id number] : 1960 Age/Sex: 56/F Req #: [id number] Adm Physician: Ordered by: ABDOULAYE JONES MD Report #: [id number] Location: ER Room/Bed: _ Procedure: [id number] DX/CHEST 2 VIEWS Exam Date: 02/02/17 Exam Time: 2009 REPORT STATUS: Signed Two view chest, February 02, 2017 Clinical history: Congestive heart failure Technique: PA and lateral views chest. Comparison: CT chest September 08, 2016 DISCUSSION : The lungs are clear and symmetrically inflated. No pleural effusions. Global cardiomegaly. Mildly prominent central vasculature with peribronchial cuffing. The skeleton is grossly intact. IMPRESSION: Cardiomegaly with early interstitial pulmonary edema. This report was generated with voice-recognition technology. Errors in ball point splitter can occur. Please interpret accordingly and contact a radiologist if there are any questions regarding the report. Signed by: Dr. Elian Barnard M.D. on 02/02/2017 8 :29 PM Dictated By: ELIAN BARNARD MD 28 Transcribed By: CARLOS on 02/02/172028 COPY TO: ABDOULAYE JONES MD
[2017-08-25 03:31] LABS: BILIRUBIN,URINE NEGATIVE (NEGATIVE); CLARITY,URINE CLEAR (CLEAR); COLOR,URINE YELLOW (YELLOW); KETONES,URINE NEGATIVE (NEGATIVE); LEUKOCYTE ESTERASE ,URINE NEGATIVE (NEGATIVE); NITRITE,URINE NEGATIVE (NEGATIVE); PROTEIN,URINE DIPSTICK NEGATIVE (NEGATIVE); URINE UROBILINOGEN 0.2 mg/dL (0.2 - 1)
[2017-08-25 03:46] LABS: BACTERIA,URINE FEW /HPF; EPITHELIAL CELLS,URINE MODERATE /LPF; RBC,URINE 0-5 /HPF (0-5)
--- NOTE | 2017-08-25 04:51 | Diagnostic Imaging Report ---
EXAMINATION: Head CT without contrast. HISTORY:Lightheaded, doesn't feel right, history of CVA. COMPARISON:None. TECHNIQUE: Multidetector axial images were obtained from the foramen magnum to the vertex without contrast. The images were reconstructed using brain and bone algorithms. Thin section brain images were reformatted into coronal and sagittal planes. Intravenous contrast: None IMAGE QUALITY: Acceptable. FINDINGS: Skull/scalp: No lytic or blastic. lesions. No surgical changes. Parenchyma: Nonspecific bilateral frontoparietal patchy white matter hypodensity are likely related to small vessel ischemic changes. Old lacunar infarct in bilateral cerebellar hemisphere. No acute hemorrhage, mass or acute major vascular territorial infarct. Arteries: No density suggestive of thrombosis. Dural sinuses: No abnormal density suggestive of thrombosis. Ventricles: No hydrocephalus or displacement. Extra-axial spaces: No abnormal density. Brain volume: Normal for age. Craniocervical junction: No mass, Chiari malformation, or basilar invagination. Sella: No mass. Paranasal/mastoid sinuses: Imaged portions unremarkable. IMPRESSION: No acute intracranial abnormality, particularly no acute hemorrhage, mass or acute major vascular territorial infarct. Mild supratentorial white matter microvascular ischemic changes. Old lacunar infarct in bilateral cerebellar hemisphere. Signed by: Dr. Lou Murry M.D. on 08/25/2017 4:48 AM
[2017-08-25 05:05] VITALS: BP 128/86
== END 2017-08-25 05:30 | disposition home or self-care (01) ==
LOC: ER 02:39
DX: Z00.6 Encounter for examination for normal comparison and control in clinical research program (principal)
CPT/HCPCS: 70450; 81001; 93005; 99283

== ENCOUNTER 2017-12-23 04:11 | Inpatient (IN) | payer MEDICARE ==
[~2017-12-23] VITALS: Ht 160 cm; Wt 122.9 kg
[2017-12-23] MEDS ORDERED: NALOXONE HCL INJ 0.4 MG/ML AMP ONE (04:19)
[2017-12-23] MEDS ORDERED: LASIX40 MG PO (04:37)
[2017-12-23] MEDS ORDERED: ZOLPIDEM TARTRA10 MG PO (04:37)
[2017-12-23] MEDS ORDERED: CARTIA XT120 MG PO (04:37)
[2017-12-23] MEDS ORDERED: ELIQUIS PO (04:37)
[2017-12-23] MEDS ORDERED: METOPROLOL SUCC50 MG PO (04:37)
[2017-12-23] MEDS ORDERED: NALOXONE HCL INJ 0.4 MG/ML AMP IV STA (04:40)
[2017-12-23 04:45] LABS: BASOPHILS # (AUTO) 0.1 (0.0-0.1); BASOPHILS % 0.4 % (0.0-1.0); EOSINOPHILS # (AUTO) 0.6 (0.0-0.4); EOSINOPHILS % 4.2 % (0.0-6.0); HEMATOCRIT 35.2 % (34.2-44.1); HEMOGLOBIN 9.8 g/dL (12.0-16.0); LYMPHOCYTES # (AUTO) 1.9 (1.0-3.2); LYMPHOCYTES % 14.6 % (18.0-39.1); MEAN CORPUSCULAR HEMOGLOBIN 24.1 pg (28-32); MEAN CORPUSCULAR HGB CONC 27.8 g/dL (31-35); MEAN CORPUSCULAR VOLUME 86.7 fL (81-99); MONOCYTES # (AUTO) 1.3 (0.2-0.8); MONOCYTES % 9.5 % (4.4-11.3); NEUTROPHILS # (AUTO) 9.4 (2.1-6.9); NEUTROPHILS % 70.8 % (38.7-80.0); PLATELET COUNT 341 x10e3/uL (140-360); RED BLOOD COUNT 4.06 x10e6/uL (3.6-5.1); RED CELL DISTRIBUTION WIDTH 20.1 % (11.7-14.4)
[2017-12-23 04:53] LABS: AMPHETAMINES SCREEN,URINE NEGATIVE (NEGATIVE); BENZODIAZEPINES SCREEN,URINE NEGATIVE (NEGATIVE); CLARITY,URINE CLEAR (CLEAR); COLOR,URINE YELLOW (YELLOW); PHENCYCLIDINE SCREEN,URINE NEGATIVE (NEGATIVE)
[2017-12-23 04:54] LABS: BILIRUBIN,URINE NEGATIVE (NEGATIVE); KETONES,URINE NEGATIVE (NEGATIVE); LEUKOCYTE ESTERASE ,URINE NEGATIVE (NEGATIVE); NITRITE,URINE NEGATIVE (NEGATIVE); PROTEIN,URINE DIPSTICK NEGATIVE (NEGATIVE); URINE UROBILINOGEN 0.2 mg/dL (0.2 - 1)
[2017-12-23 05:03] LABS: INR 1.15; PROTHROMBIN TIME 13.8 seconds (11.9-14.5)
[2017-12-23 05:04] LABS: PARTIAL THROMBOPLASTIN TIME 30.6 seconds (23.8-35.5)
--- NOTE | 2017-12-23 05:07 | Diagnostic Imaging Report ---
EXAMINATION: CHEST SINGLE (PORTABLE) INDICATION: Shortness of breath COMPARISON: 09/07/2016 FINDINGS: TUBES and LINES: None. LUNGS: Lungs are not well inflated. There are bibasilar atelectasis. There is perihilar interstitial opacities, consistent with interstitial edema. PLEURA: No pleural effusion or pneumothorax. HEART AND MEDIASTINUM: Cardiac size is severely enlarged. There are atherosclerotic calcifications within the aorta. BONES AND SOFT TISSUES: No acute osseous lesion. Soft tissues are unremarkable. UPPER ABDOMEN: No free air under the diaphragm. IMPRESSION: Findings are compatible with cardiogenic pulmonary edema. Signed by: Dr. Darian Mo M.D. on 12/23/2017 5:04 AM
[2017-12-23 05:10] LABS: RBC,URINE 0-5 /HPF (0-5); WBC,URINE (MAN) 0-5 /HPF (0-5)
[2017-12-23 05:11] LABS: BACTERIA,URINE RARE /HPF; EPITHELIAL CELLS,URINE FEW /LPF
[2017-12-23 05:13] LABS: ALBUMIN 3.1 g/dL (3.5-5.0); ALBUMIN/GLOBULIN RATIO 0.7 (0.8-2.0); ANION GAP 12.2 mmol/L (8-16); CALCIUM 9.3 mg/dL (8.4-10.2); CREATININE, SERUM 1.71 mg/dL (0.57-1.11); POTASSIUM 4.2 mmol/L (3.5-5.1)
[2017-12-23] MEDS ORDERED: FUROSEMIDE INJ 10 MG/ML 4 ML VIAL IV ONE (05:15)
[2017-12-23 05:33] LABS: CREATINE KINASE MB 0.9 ng/mL (0-5.0); THYROID STIMULATING HORMONE 2.971 uIU/mL (0.350-4.940)
[2017-12-23] MEDS ORDERED: SODIUM CHLORIDE FLUSH 10 ML SYR INJ PRN (06:30)
[2017-12-23] MEDS: FUROSEMIDE INJ 10 MG/ML 4 ML VIAL IV SCH ×2 (07:58→16:52)
[2017-12-23] MEDS ORDERED: DILTIAZEM HCL 120 MG CAP CD PO SCH (09:00)
[2017-12-23] MEDS: APIXABAN 5 MG TABLET PO SCH ×2 (09:35→16:53)
[2017-12-23] MEDS: FUROSEMIDE 40 MG TAB PO SCH ×2 (09:35→16:43)
[2017-12-23] MEDS: METOPROLOL SUCCINATE 50 MG TAB XL PO SCH ×2 (09:35→16:53)
[2017-12-23] MEDS: CARVEDILOL 12.5 MG TAB PO SCH ×2 (09:35→16:52)
--- NOTE | 2017-12-23 10:14 | History and Physical ---
CHIEF COMPLAINT: Patient is a 57-year-old lady comes in with shortness of breath. HISTORY OF PRESENTING ILLNESS: This is Ms. Dubon, history got from the ER because patient is confused. Patient apparently came in to the ER with dyspnea, abrupt in onset, and the patient came in, and had orthopnea and PND, and was given oxygen. Her oxygenation has improved and the patient is admitted for congestive heart failure. The patient also has a history of taking Ambien and apparently she took 2 Ambiens consecutively and came in, was also found to be very groggy and confused, and patient has been diuresed right now. PAST MEDICAL HISTORY: From records congestive heart failure and atrial fibrillation. MEDICATIONS: 1. Cartia 120 mg. 2. Lasix 40 mg. 3. Metoprolol 50 mg. 4. Zolpidem 10 mg. 5. Eliquis 5 mg twice a day. Dandy Operator, she does not remember and primary care physician we do not know yet. PAST SURGICAL HISTORY: History of cholecystectomy. ALLERGIES: NO KNOWN DRUG ALLERGIES AT THIS TIME. REVIEW OF SYSTEMS: She does not complain of any chest pain. She is confused. Shortness of breath nausea, vomiting, diarrhea. No constipation, no rectal bleeding. No hematochezia, no hematemesis. PHYSICAL EXAMINATION: GENERAL: Patient is very confused. VITAL SIGNS: Temperature is 98.2, pulse is 79, blood pressure is 123/80. HEENT: Normocephalic, atraumatic. Pupils react to light and accommodation. CVS: S1 and S2. Irregularly irregular. ABDOMEN: Protuberant, nontender. EXTREMITIES: Positive for 2+ pitting edema. LABS AND IMAGING: X-ray showed pulmonary congestion consistent with cardiogenic edema. EKG, heart rate of 95 with atrial fibrillation, nonspecific ST-T changes. CBC: White count was 13,000, hemoglobin of 9.8, hematocrit of 35.2. Chemistry: Sodium of 140, potassium is 4.2, creatinine is 1.71 with estimated GFR of 31. BNP was 347.5. Toxicology so far negative for benzodiazepines, cocaines, and cannabinoids. Urine was normal. ASSESSMENT: Congestive heart failure. The patient has been put on intravenous Lasix. Will continue with intravenous Lasix. Echocardiogram will be obtained. The patient will be put back on Eliquis. The patient once diuresed and daily weights are done and once her mentation is back, we can ask her assistant program manager's . Will continue to monitor the patient. Put on telemetry monitoring and also check her thyroid. Further recommendations on clinical course. Will also ask the patient to avoid Ambiens as much as possible. The patient also has azotemia, acute kidney injury. Will continue trending her creatinine. DIAGNOSIS: Acute systolic congestive heart failure. Job#: [id number]
[2017-12-23 10:45] VITALS: BP 158/76
[2017-12-23 12:00] VITALS: BP 122/79
[2017-12-23 12:49] LABS: FREE THYROXINE INDEX 1.8316 (1.4-3.8); THYROID STIMULATING HORMONE 2.087 uIU/mL (0.350-4.940)
[2017-12-23 12:53] LABS: CREATINE KINASE 38 IU/L (29-168)
[2017-12-23 16:11] VITALS: BP 127/86
[2017-12-23 20:00] VITALS: BP 99/61
[2017-12-23 21:06] LABS: CREATINE KINASE 28 IU/L (29-168)
[2017-12-24] VITALS (9 sets, daily range): BP systolic 100–133; BP diastolic 54–82
[2017-12-24 05:47] LABS: BASOPHILS # (AUTO) 0.1 (0.0-0.1); BASOPHILS % 0.5 % (0.0-1.0); EOSINOPHILS # (AUTO) 0.7 (0.0-0.4); EOSINOPHILS % 5.2 % (0.0-6.0); HEMATOCRIT 35.1 % (34.2-44.1); HEMOGLOBIN 9.8 g/dL (12.0-16.0); LYMPHOCYTES # (AUTO) 1.7 (1.0-3.2); LYMPHOCYTES % 13.6 % (18.0-39.1); MEAN CORPUSCULAR HEMOGLOBIN 24.2 pg (28-32); MEAN CORPUSCULAR HGB CONC 27.9 g/dL (31-35); MEAN CORPUSCULAR VOLUME 86.7 fL (81-99); MONOCYTES % 7.9 % (4.4-11.3); NEUTROPHILS # (AUTO) 9.2 (2.1-6.9); NEUTROPHILS % 72.6 % (38.7-80.0); PLATELET COUNT 334 x10e3/uL (140-360); RED BLOOD COUNT 4.05 x10e6/uL (3.6-5.1); RED CELL DISTRIBUTION WIDTH 19.8 % (11.7-14.4)
[2017-12-24 06:19] LABS: ANION GAP 12.2 mmol/L (8-16); CALCIUM 9.1 mg/dL (8.4-10.2); CREATININE, SERUM 1.47 mg/dL (0.57-1.11); POTASSIUM 4.2 mmol/L (3.5-5.1)
--- NOTE | 2017-12-24 06:24 | Diagnostic Imaging Report ---
EXAMINATION: CHEST SINGLE (PORTABLE) INDICATION: Congestive heart failure. COMPARISON: 12/23/2017 FINDINGS: TUBES and LINES: None. LUNGS: Lungs are not well inflated. There are bibasilar atelectasis. There is perihilar interstitial opacities, consistent with interstitial edema. PLEURA: No pleural effusion or pneumothorax. HEART AND MEDIASTINUM: Cardiac size is severely enlarged. There are atherosclerotic calcifications within the aorta. BONES AND SOFT TISSUES: No acute osseous lesion. Soft tissues are unremarkable. UPPER ABDOMEN: No free air under the diaphragm. IMPRESSION: Stable appearance of the chest with evidence of severe cardiomegaly and interlobular septae thickening in keeping with edema Signed by: Dr. Darian Mo M.D. on 12/24/2017 6:21 AM
[2017-12-24 07:23] LABS: ANISOCYTOSIS MODERATE; BAND NEUTROPHILS % (MANUAL) 1 %; EOSINOPHILS % (MANUAL) 6 % (0-7); HYPOCHROMASIA SLIGHT; LYMPHOCYTES % (MANUAL) 16 % (19-48); MONOCYTES % (MANUAL) 6 % (3.4-9.0); NEUTROPHILS % (MANUAL) 71 % (40-74); PLATELET ESTIMATE ADEQUATE; PLATELET MORPHOLOGY COMMENT FEW LARGE
[2017-12-24 07:24] LABS: POIKILOCYTOSIS SLIGHT; RBC MORPHOLOGY COMMENT NORMAL
[2017-12-24] MEDS ORDERED: DILTIAZEM HCL 120 MG CAP CD PO SCH (09:00)
[2017-12-24] MEDS: METOPROLOL SUCCINATE 50 MG TAB XL PO SCH ×2 (09:47→16:30)
[2017-12-24] MEDS: FUROSEMIDE 40 MG TAB PO SCH ×2 (09:47→16:30)
[2017-12-24] MEDS: APIXABAN 5 MG TABLET PO SCH ×2 (09:47→16:30)
[2017-12-24] MEDS: CARVEDILOL 12.5 MG TAB PO SCH ×2 (09:47→16:26)
--- NOTE | 2017-12-24 15:56 | Diagnostic Imaging Report ---
Exam: Head CT without contrast History: Increased right-sided weakness, history of stroke Comparison studies: Head CT 08/25/2017 Technique: Axial images were obtained from the skull base to the vertex. Coronal and sagittal images reconstructed from the axial data. Intravenous contrast: None Findings: Scalp: No abnormalities. Bones: No fractures, blastic or lytic lesions. Brain sulci: Appropriate for age. Ventricles: Normal in size and configuration. No hydrocephalus. Extra-axial spaces: No masses, no fluid collection. Parenchyma: Mass, acute hemorrhage or acute cortical vascular insults. A few scattered hypodensities in the supratentorial white matter are nonspecific but most compatible with chronic small vessel ischemic changes. Unchanged small chronic insult in the bilateral cerebellar hemispheres. Sellar/suprasellar region: No abnormalities. Craniocervical junction: Patent foramen magnum. No Chiari one malformation. Incidental findings: Atherosclerotic calcifications in the carotid siphons and intradural vertebral arteries. IMPRESSION: 1. No acute intracranial abnormalities. 2. Mild chronic microvascular ischemic changes. 3. Small chronic bilateral cerebellar insults. 4. No changes from the previous head CT 08/25/2017. Signed by: Dr. Chadd Mills M.D. on 12/24/2017 1:35 PM
[2017-12-24] MEDS: FUROSEMIDE INJ 10 MG/ML 4 ML VIAL IV SCH (22:24)
[2017-12-25] VITALS: BP 127/64
--- NOTE | 2017-12-25 02:03 | Consultation ---
DATE OF CONSULTATION: December 24, 2017 CARDIOLOGY CONSULT NOTE REASON FOR CONSULTATION: Congestive heart failure. CHIEF COMPLAINT: Shortness of breath and altered mental status. HPI: Patient is a 57-year-old female, who is morbidly obese with COPD, on home oxygen, who presented from home with complaints about shortness of breath and lower extremity swelling. Patient says that she was very confused at the time of presentation and does not remember how she came to the hospital. She said she has had multiple admissions recently and multiple hospitalizations to several different hospitals due to heart problems. She also reports that she was at one point told that she may have a valvular heart problem that needs to be repaired. However, she is not exactly sure, which valve since her admission here she has been diuresed with IV diuretics and now, feels much better. She has chronic lower extremity edema with water blisters and has been treated for cellulitis recently with oral antibiotics. She is also on home oxygen, but reports that she is not completely compliant with this. She also takes Ambien, which makes her groggy and confused at home. PAST MEDICAL HISTORY 1. Congestive heart failure. 2. Lower extremity edema. 3. COPD, on home oxygen. 4. Hypertension. 5. Hyperlipidemia. REVIEW OF SYSTEMS: As stated above, otherwise review of system is negative. SOCIAL HISTORY: Patient denies any current smoking, drug use or alcohol use. FAMILY HISTORY: Patient denies any family history of any heart problems or early coronary artery disease. PHYSICAL EXAM VITALS: Temperature 97.4, pulse 64, respiratory rate 18, blood pressure 100/54, satting 95%, on nasal cannula 2 L. GENERAL: Morbidly obese white female. CARDIOVASCULAR: Very difficult cardiovascular exam due to body habitus. Heart tones are barely audible. PMI could not be palpated. Heart tones are irregular. S1 and S2 heard only at the base. Could not auscultate cardiac sounds at the apex or in the parasternal area due to body habitus. Limited exam. No murmur, rubs or gallops are heard. She has normal carotid pulses. Distal pulses could not be palpated due to significant peripheral edema. She had palpable radial pulses. She has 4+ edema and chronic venostasis changes in bilateral lower extremities with blisters and venous stasis ulcers bilaterally with some redness surrounding. RESPIRATORY: Poor air movement overall. No respiratory distress. LUNGS: Clear to auscultation bilaterally; however, limited exam due to body habitus. ABDOMEN: Very obese soft nontender. Could not palpate any masses or hepatosplenomegaly, but exam once again limited due to body habitus. NEURO AND PSYCH: Patient is now alert and oriented times 3 and displays a normal affect. All medications, labs, and imaging data reviewed. Notable for white count of 12.7. Creatinine 1.47. Troponins negative. BNP of 385. Chest x-ray shows pulmonary edema and severe cardiomegaly. Head CT shows no acute intracranial abnormalities with microvascular ischemia and chronic bilateral cerebellar insults likely from ischemic strokes. TELEMETRY: Telemetry data reviewed shows atrial fibrillation. ASSESSMENT AND PLAN 1. Atrial fibrillation. 2. Chronic congestive heart failure. 3. Severe problem volume overload. 4. Venous insufficiency with venous ulcerations. PLAN: Continue diuresis with IV diuretics. Continue metoprolol succinate 100 mg for rate control of her atrial fibrillation and apixaban 5 mg b.i.d. for anticoagulation. Patient is also taking diltiazem. Will try to discontinue diltiazem and add digoxin instead if she needs further AV donna blockade for rate control given her heart failure. Will check venous Dopplers of bilateral lower extremities to evaluate her venous insufficiency. Thank you for this consult. Will continue to follow. Job#: [id number] CQ
[2017-12-25 05:07] VITALS: BP 118/83
[2017-12-25 06:08] LABS: ANION GAP 13.8 mmol/L (8-16); CALCIUM 9.5 mg/dL (8.4-10.2); CREATININE, SERUM 1.59 mg/dL (0.57-1.11); POTASSIUM 3.8 mmol/L (3.5-5.1)
[2017-12-25] MEDS: FUROSEMIDE INJ 10 MG/ML 4 ML VIAL IV SCH ×2 (06:37→14:58)
[2017-12-25] MEDS: APIXABAN 5 MG TABLET PO SCH ×2 (07:57→17:14)
[2017-12-25] MEDS: METOPROLOL SUCCINATE 50 MG TAB XL PO SCH ×2 (07:58→17:14)
[2017-12-25 08:28] VITALS: BP 131/75
[2017-12-25 08:35] VITALS: BP 131/75
[2017-12-25] MEDS ORDERED: DIGOXIN 0.125 MG TAB PO SCH (09:00)
[2017-12-25 12:25] VITALS: BP 156/73
--- NOTE | 2017-12-26 14:02 | Progress Note ---
DATE: December 25, 2017 CARDIOLOGY PROGRESS NOTE SUBJECTIVE: No major events overnight. The patient denies any chest pain or shortness of breath. She says she has been urinating profusely with IV diuresis. REVIEW OF SYSTEMS: As above, otherwise negative. OBJECTIVE VITAL SIGNS: Temperature 97.0, heart rate 78, respiratory rate 16, blood pressure 156/73, satting 99% on nasal cannula. GENERAL: Morbidly obese white female. CARDIOVASCULAR: Very difficult cardiovascular exam due to body habitus. Regular S1 and S2. No murmurs, rubs or gallops are heard. Palpable carotid pulses. Palpable radial pulses. Lower extremity pulses could not be palpated due to severe edema and body habitus. RESPIRATORY: Poor air movement bilaterally. No wheezing. No respiratory distress. ABDOMEN: Obese, soft, nontender. No masses. NEURO AND PSYCHIATRIC: The patient is alert and oriented to person, place and time. Normal affect. LABORATORY DATA: All laboratory data reviewed. IMAGING: Data reviewed. TELEMETRY: Data reviewed and shows atrial fibrillation with rates mostly in the 70s and 80s. ASSESSMENT AND PLAN 1. Chronic atrial fibrillation. 2. Volume overload. 3. Severe bilateral lymphedema. PLAN: I reviewed her echocardiogram. A technically difficult study, however, left ventricular function appears preserved. No significant valvular abnormalities noted based on Doppler data, however, visualization was suboptimal. She continues to diurese well with IV diuretics. However, she has severe lower extremity edema which will require months of outpatient diuresis. Her heart rate is well controlled on current regimen of metoprolol and digoxin. Recommend continuing her Apixaban 5 mg twice a day for stroke prevention. From a cardiovascular standpoint, she is okay to be discharged, but needs close outpatient followup to monitor her outpatient diuresis and management of her lymphedema. Thank you for this consult. Job#: [id number]
== END 2017-12-25 18:20 | disposition home health service (06) | DRG 291 ==
LOC: ER 04:11 → ERHOLD 06:49 → MED/SURG 10:07
PROVIDERS: ADMIT Family Medicine; ATTEND Family Medicine
DX: I13.0 Hypertensive heart and chronic kidney disease with heart failure and stage 1 through stage 4 chronic kidney disease, or unspecified chronic kidney disease (principal); I50.21 Acute systolic (congestive) heart failure; Z68.42 Body mass index [BMI] 45.0-49.9, adult; I50.1 Left ventricular failure, unspecified; Z79.01 Long term (current) use of anticoagulants; E66.01 Morbid (severe) obesity due to excess calories; J44.9 Chronic obstructive pulmonary disease, unspecified; Z99.81 Dependence on supplemental oxygen; I48.91 Unspecified atrial fibrillation; I87.2 Venous insufficiency (chronic) (peripheral); I48.2 Chronic atrial fibrillation; N18.9 Chronic kidney disease, unspecified; I89.0 Lymphedema, not elsewhere classified
CPT/HCPCS: 36415; 51700; 70450; 71045; 80048; 80053; 80307; 81001; 82550; 82553; 82948; 83735; 83880; 84436; 84443; 84479; 84484; 85025; 85610; 85730; 93005; 93306; 99285; J1940; J2310

== ENCOUNTER 2019-12-23 02:07 | Emergency (ER) | payer OTHER, MEDICARE ==
[~2019-12-23] VITALS: Ht 160 cm; Wt 127.0 kg
[~2019-12-23 02:07] MED LIST changes: +CARTIA XT120 MG PO; +ELIQUIS PO; +KEFLEX500 MG PO; +LASIX40 MG PO; +METOPROLOL SUCC50 MG PO; +ULTRAM50 MG PO; +ZOLPIDEM TARTRA10 MG PO
[2019-12-23] MEDS ORDERED: MECLIZINE HCL 12.5 MG TAB PO ONE (02:15)
[2019-12-23 02:30] LABS: BASOPHILS # (AUTO) 0.1 (0.0-0.1); BASOPHILS % 0.6 % (0.0-1.0); EOSINOPHILS # (AUTO) 0.8 (0.0-0.4); EOSINOPHILS % 6.3 % (0.0-6.0); HEMATOCRIT 43.1 % (34.2-44.1); HEMOGLOBIN 12.6 g/dL (12.0-16.0); LYMPHOCYTES # (AUTO) 2.4 (1.0-3.2); LYMPHOCYTES % 18.5 % (18.0-39.1); MEAN CORPUSCULAR HEMOGLOBIN 24.9 pg (28-32); MEAN CORPUSCULAR HGB CONC 29.2 g/dL (31-35); MEAN CORPUSCULAR VOLUME 85.2 fL (81-99); MONOCYTES # (AUTO) 1.1 (0.2-0.8); MONOCYTES % 8.9 % (4.4-11.3); NEUTROPHILS # (AUTO) 8.4 (2.1-6.9); NEUTROPHILS % 65.3 % (38.7-80.0); PLATELET COUNT 313 x10e3/uL (140-360); RED BLOOD COUNT 5.06 x10e6/uL (3.6-5.1); RED CELL DISTRIBUTION WIDTH 17.4 % (11.7-14.4)
[2019-12-23 02:48] LABS: ALBUMIN 3.4 g/dL (3.5-5.0); ALBUMIN/GLOBULIN RATIO 0.8 (0.8-2.0); ANION GAP 13.6 mmol/L (8-16); CALCIUM 10.3 mg/dL (8.4-10.2); CREATININE, SERUM 1.74 mg/dL (0.57-1.11); POTASSIUM 4.6 mmol/L (3.5-5.1)
[2019-12-23 02:55] LABS: CREATINE KINASE MB 0.9 ng/mL (0-5.0)
--- NOTE | 2019-12-23 02:59 | Emergency Department Note ---
History of Present Illnes History of Present Illness Chief Complaint: Neurological History of Present Illness This is a 59 year old female PRESENTS TO ED WITH REPORT OF "MY LEGS WERE SHAKING" TODAY FOLLOWING FIRSDT ADMINISTRATION OF NORCO 10/325 MG; PT ALSO REPORTS INTERMITTENT DIZZINESS AND RIGHT SIDED WEAKNESS X3 YEARS FOLLOWING CVA; PT TO ED RM #7 ON ARRIVAL, . Historian: Patient, Electronic Calibration Technician/EMS Arrival Mode: [place] Onset (how long ago): hour(s) (4) Location: LEGS Quality: WEAKNESS Radiation: Reports non-radiation Severity: mild Onset quality: gradual Duration (how long): hour(s) (4) Timing of current episode: constant Progression: unchanged Chronicity: new Context: Reports other (STARTED NORO FOR THE FIRST TIME YESTERDAY); Denies recent illness, Denies recent surgery Relieving factors: none Exacerbating factors: none Associated symptoms: Reports denies other symptoms Past Medical/Family History Physician Review I have reviewed the patient's past medical and family history. Any updates have been documented here. Past Medical History Recent Fever: No Clinical Suspicion of Infectio: No New/Unexplained Change in Ment: No Past Medical History: Hypertension, Diabetes, CHF, CVA, A-Fib, Anxiety, Depression, Hyperlipedemia Past Surgical History: Cholecysctectomy, Appendectomy, Hysterectomy Other Surgery: PEG TUBE PLACEMENT PARTIAL HYSTERECTOMY Social History Smoking Cessation: Never Smoker Counseling Performed: No Alcohol Use: None Any Illegal Drug Use: No Family History Family history of heart diseas: Yes Other family history HTN,DM,CAD Other Last Tetanus: UTD Any Pre-Existing Lines (PICC,: No Review of Systems Review of Systems Constitutional: Reports no symptoms EENTM: Reports no symptoms Cardiovascular: Reports no symptoms Respiratory: Reports no symptoms Gastrointestinal: Reports no symptoms Genitourinary: Reports no symptoms Musculoskeletal: Reports no symptoms Integumentary: Reports no symptoms Neurological: Reports as per HPI Psychological: Reports no symptoms Endocrine: Reports no symptoms Hematological/Lymphatic: Reports no symptoms Physical Exam Related Data Allergies: Coded Allergies: No Known Allergies (Unverified , 09/07/16) Triage Vital Signs Vital Signs Date Time Temp Pulse Resp B/P (MAP) Pulse Ox O2 Delivery O2 Flow Rate FiO2 12/23/19 02:10 98.4 96 17 140/96 96 Room Air Vital signs reviewed: Yes Physical Exam CONSTITUTIONAL Constitutional: Present well-developed, Present well-nourished HENT HENT: Present normocephalic, Present atraumatic, Present oropharynx clear/moist, Present nose normal HENT L/R: Present left ext ear normal, Present right ext ear normal EYES Eyes: Reports PERRL, Reports conjunctivae normal NECK Neck: Present ROM normal PULMONARY Pulmonary: Present effort normal, Present breath sounds normal CARDIOVASCULAR Cardiovascular: Present regular rhythm, Present heart sounds normal, Present capillary refill normal, Present normal rate GASTROINTESTINAL Abdominal: Present soft, Present nontender, Present bowel sounds normal GENITOURINARY Genitourinary: Present exam deferred SKIN Skin: Present warm, Present dry MUSCULOSKELETAL Musculoskeletal: Present ROM normal NEUROLOGICAL Neurological: Present alert, Present oriented x 3, Present weakness (RUE AND RLE 4-/5 STRENGTH, PT HAS HAD THIS WEAKNESS SINCE STROKE 3 YEAR AGO.) PSYCHOLOGICAL Psychological: Present mood/affect normal, Present judgement normal Results Laboratory Result Diagram: 12/23/19 0220 12/23/19 0220 Laboratory Laboratory Tests Test 12/23/19 03:38 12/23/19 02:20 Urine Color Yellow (YELLOW) Urine Clarity Clear (CLEAR) Urine pH 6.5 (5 - 7) Urine Specific [place] 1.025 (1.010-1.025) Urine Protein Negative (NEGATIVE) Urine Glucose (UA) Negative (NEGATIVE) Urine Ketones Negative (NEGATIVE) Urine Blood Negative (NEGATIVE) Urine Nitrite Negative (NEGATIVE) Urine Bilirubin Negative (NEGATIVE) Urine Urobilinogen 0.2 mg/dL (0.2 - 1) Urine Leukocyte Esterase Negative (NEGATIVE) Urine RBC 0-5 /HPF (0-5) Urine WBC 0-5 /HPF (0-5) Urine Epithelial Cells Few /LPF (NONE) Urine Bacteria Rare /HPF (NONE) White Blood Count 12.84 x10e3/uL (4.8-10.8) Red Blood Count 5.06 x10e6/uL (3.6-5.1) Hemoglobin 12.6 g/dL (12.0-16.0) Hematocrit 43.1 % (34.2-44.1) Mean Corpuscular Volume 85.2 fL (81-99) Mean Corpuscular Hemoglobin 24.9 pg (28-32) Mean Corpuscular Hemoglobin Concent 29.2 g/dL (31-35) Red Cell Distribution Width 17.4 % (11.7-14.4) Platelet Count 313 x10e3/uL (140-360) Neutrophils (%) (Auto) 65.3 % (38.7-80.0) Lymphocytes (%) (Auto) 18.5 % (18.0-39.1) Monocytes (%) (Auto) 8.9 % (4.4-11.3) Eosinophils (%) (Auto) 6.3 % (0.0-6.0) Basophils (%) (Auto) 0.6 % (0.0-1.0) Neutrophils # (Auto) 8.4 (2.1-6.9) Lymphocytes # (Auto) 2.4 (1.0-3.2) Monocytes # (Auto) 1.1 (0.2-0.8) Eosinophils # (Auto) 0.8 (0.0-0.4) Basophils # (Auto) 0.1 (0.0-0.1) Absolute Immature Granulocyte (auto 0.05 x10e3/uL (0-0.1) Sodium Level 141 mmol/L (136-145) Potassium Level 4.6 mmol/L (3.5-5.1) Chloride Level 104 mmol/L (98-107) Carbon Dioxide Level 28 mmol/L (22-29) Anion Gap 13.6 mmol/L (8-16) Blood Urea Nitrogen 20 mg/dL (7-26) Creatinine 1.74 mg/dL (0.57-1.11) Estimat Glomerular Filtration Rate 30 ML/MIN (60-) BUN/Creatinine Ratio 11 (6-25) Glucose Level 140 mg/dL (74-118) Calcium Level 10.3 mg/dL (8.4-10.2) Total Bilirubin 0.5 mg/dL (0.2-1.2) Aspartate Amino Transf (AST/SGOT) 16 IU/L (5-34) Alanine Aminotransferase (ALT/SGPT) 17 IU/L (0-55) Alkaline Phosphatase 83 IU/L (40-150) Creatine Kinase 27 IU/L (29-168) Creatine Kinase MB 0.90 ng/mL (0-5.0) Troponin I 0.009 ng/mL (0-0.300) Total Protein 7.7 g/dL (6.5-8.1) Albumin 3.4 g/dL (3.5-5.0) Globulin 4.3 g/dL (2.3-3.5) Albumin/Globulin Ratio 0.8 (0.8-2.0) Laboratory Tests Test 12/23/19 02:20 White Blood Count 12.84 x10e3/uL (4.8-10.8) Red Blood Count 5.06 x10e6/uL (3.6-5.1) Hemoglobin 12.6 g/dL (12.0-16.0) Hematocrit 43.1 % (34.2-44.1) Mean Corpuscular Volume 85.2 fL (81-99) Mean Corpuscular Hemoglobin 24.9 pg (28-32) Mean Corpuscular Hemoglobin Concent 29.2 g/dL (31-35) Red Cell Distribution Width 17.4 % (11.7-14.4) Platelet Count 313 x10e3/uL (140-360) Neutrophils (%) (Auto) 65.3 % (38.7-80.0) Lymphocytes (%) (Auto) 18.5 % (18.0-39.1) Monocytes (%) (Auto) 8.9 % (4.4-11.3) Eosinophils (%) (Auto) 6.3 % (0.0-6.0) Basophils (%) (Auto) 0.6 % (0.0-1.0) Neutrophils # (Auto) 8.4 (2.1-6.9) Lymphocytes # (Auto) 2.4 (1.0-3.2) Monocytes # (Auto) 1.1 (0.2-0.8) Eosinophils # (Auto) 0.8 (0.0-0.4) Basophils # (Auto) 0.1 (0.0-0.1) Absolute Immature Granulocyte (auto 0.05 x10e3/uL (0-0.1) Sodium Level 141 mmol/L (136-145) Potassium Level 4.6 mmol/L (3.5-5.1) Chloride Level 104 mmol/L (98-107) Carbon Dioxide Level 28 mmol/L (22-29) Anion Gap 13.6 mmol/L (8-16) Blood Urea Nitrogen 20 mg/dL (7-26) Creatinine 1.74 mg/dL (0.57-1.11) Estimat Glomerular Filtration Rate 30 ML/MIN (60-) BUN/Creatinine Ratio 11 (6-25) Glucose Level 140 mg/dL (74-118) Calcium Level 10.3 mg/dL (8.4-10.2) Total Bilirubin 0.5 mg/dL (0.2-1.2) Aspartate Amino Transf (AST/SGOT) 16 IU/L (5-34) Alanine Aminotransferase (ALT/SGPT) 17 IU/L (0-55) Alkaline Phosphatase 83 IU/L (40-150) Creatine Kinase 27 IU/L (29-168) Total Protein 7.7 g/dL (6.5-8.1) Albumin 3.4 g/dL (3.5-5.0) Globulin 4.3 g/dL (2.3-3.5) Albumin/Globulin Ratio 0.8 (0.8-2.0) Lab results reviewed: Yes Imaging Imaging results reviewed: Yes Impressions Procedure: [id number] CT/CT BRAIN WO Exam Date: 12/23/19 Exam Time: 0245 REPORT STATUS: Signed Examination: CT head without contrast Clinical Indication: Dizziness. Technique: Transaxial noncontrast images from the skull base through the vertex were obtained. Sagittal and coronal reformatted images were done. Dose modulation, iterative reconstruction, and/or weight based adjustment of the mA/kV was utilized to reduce the radiation dose to as low as reasonably achievable. Comparison: Head CT dated 12/24/2017. Findings: Scalp: No abnormalities. Bones: Intact. No fractures. No blastic or lytic lesions. Brain sulci: Appropriate for patient's age. Ventricles: Normal in size and configuration. No hydrocephalus. . Extra-axial space: No abnormalities. Parenchyma: There are patchy areas of low-attenuation within subcortical and periventricular white matter, nonspecific, but could represent microvascular ischemic disease. No masses, hemorrhage, or acute or chronic cortical based vascular insults. Suprasellar region: No abnormalities. Craniocervical junction: The foramen magnum is patent. No Chiari one malformation. Impression: 1. No acute intracranial finding. No change from December 24, 2017. 2. Unchanged chronic microvascular ischemic change. Signed by: Dr. Ana Lilia Alston M.D. on 12/23/2019 3:41 AM Procedures 12 Lead ECG Interpretation ECG Interpretation : ECG: ECG 1 Cigar Packer: Interpreted by ED physician Date: Dec 23, 2019 Time: 02:32 Rhythm: atrial fibrillation Rate: normal BPM: 92 QRS axis: right ST segments normal: Yes T waves normal: Yes Other findings: no other findings Clinical Impression: dysrhythmia - atrial (ATRIAL FIBRILIATION WIHOUT RVR) Assessment & Plan Medical Decision Making MDM PT WITH WEAKNESS AND SHAKING TO BOTH LEGS AFTER STARTING NORCO YESTERDAY, H/O STROKE 3 YEARS AGO CBC, CMP, UA, CT BRAIN , EKG, CARDIAC ENZYMES ORDERED TO EVAL FOR UTI, ELECTROLYTE ABNORMALITY, ACUTE INTRACRANIAL ABNORMALITY, MYOCARDIAL INFARCTION Reassessment Reassessment time: 04:43 Reassessment PT DOING FINE, EXAM UNCHANGED Assessment & Plan Final Impression: (1) Weakness Depart Disposition: HOME, SELF-CARE Last Vital Signs Date Time Temp Pulse Resp B/P (MAP) Pulse Ox O2 Delivery O2 Flow Rate FiO2 12/23/19 02:10 98.4 96 17 140/96 96 Room Air Home Meds Active Scripts Tramadol Hcl (ULTRAM) 50 Mg Tablet, 50 MG PO Q6HR, #10 TAB Prov:SHARLA SANDS, 06/07/19 Cephalexin Monohydrate (KEFLEX) 500 Mg Capsule, 500 MG PO Q6HR, #40 TAB 0 Refills Prov:SHARLA SANDS DO 06/07/19 Reported Medications Metoprolol Succinate (METOPROLOL SUCCINATE) 50 Mg Tab.er.24h, 100 MG PO BID, MG 12/23/17 Diltiazem Hcl (CARTIA XT) 120 Mg Cap.er.24h, 1 TAB PO DAILY 12/23/17 [Eliquis] No Conflict Check, 5 MG PO BID 12/23/17 Furosemide (LASIX) 40 Mg Tablet, 40 MG PO BID, #30 TAB 12/23/17 Zolpidem Tartrate (ZOLPIDEM TARTRATE) 10 Mg Tablet, 10 MG PO, #30 TAB 12/23/17 Medications in the ED Meclizine HCl 25 mg ONCE ONCE PO Last administered on 12/23/19at 02:47; Admin Dose 25 MG; Start 12/23/19 at 02:15; Stop 12/23/19 at 02:16; Status DC HAROLDO SHEIKH MD Dec 23, 2019 02:59
--- NOTE | 2019-12-23 03:44 | Diagnostic Imaging Report ---
Examination: CT head without contrast Clinical Indication: Dizziness. Technique: Transaxial noncontrast images from the skull base through the vertex were obtained. Sagittal and coronal reformatted images were done. Dose modulation, iterative reconstruction, and/or weight based adjustment of the mA/kV was utilized to reduce the radiation dose to as low as reasonably achievable. Comparison: Head CT dated 12/24/2017. Findings: Scalp: No abnormalities. Bones: Intact. No fractures. No blastic or lytic lesions. Brain sulci: Appropriate for patient's age. Ventricles: Normal in size and configuration. No hydrocephalus. . Extra-axial space: No abnormalities. Parenchyma: There are patchy areas of low-attenuation within subcortical and periventricular white matter, nonspecific, but could represent microvascular ischemic disease. No masses, hemorrhage, or acute or chronic cortical based vascular insults. Suprasellar region: No abnormalities. Craniocervical junction: The foramen magnum is patent. No Chiari one malformation. Impression: 1. No acute intracranial finding. No change from December 24, 2017. 2. Unchanged chronic microvascular ischemic change. Signed by: Dr. Ana Lilia Alston M.D. on 12/23/2019 3:41 AM
[2019-12-23 04:09] LABS: BILIRUBIN,URINE NEGATIVE (NEGATIVE); CLARITY,URINE CLEAR (CLEAR); COLOR,URINE YELLOW (YELLOW); KETONES,URINE NEGATIVE (NEGATIVE); LEUKOCYTE ESTERASE ,URINE NEGATIVE (NEGATIVE); NITRITE,URINE NEGATIVE (NEGATIVE); PROTEIN,URINE DIPSTICK NEGATIVE (NEGATIVE); URINE UROBILINOGEN 0.2 mg/dL (0.2 - 1)
[2019-12-23 04:11] LABS: BACTERIA,URINE RARE /HPF; EPITHELIAL CELLS,URINE FEW /LPF; RBC,URINE 0-5 /HPF (0-5); WBC,URINE (MAN) 0-5 /HPF (0-5)
[2019-12-23 04:51] VITALS: BP 143/92
== END 2019-12-23 05:51 | disposition home or self-care (01) ==
LOC: ER 02:35
DX: R53.1 Weakness (principal); I69.351 Hemiplegia and hemiparesis following cerebral infarction affecting right dominant side; R42 Dizziness and giddiness; I10 Essential (primary) hypertension; E11.9 Type 2 diabetes mellitus without complications; I50.9 Heart failure, unspecified; E78.5 Hyperlipidemia, unspecified; F41.9 Anxiety disorder, unspecified
CPT/HCPCS: 36415; 70450; 80053; 81001; 82550; 82553; 84484; 85025; 93005; 99284; J8597